=== PATIENT | male | born 1945 | race Caucasian/White ===

== ENCOUNTER 2017-02-05 18:40 | Emergency (ER) | payer MEDICARE ==
[2017-02-05] MEDS ORDERED: NTG IV ONE (18:41)
[2017-02-05] MEDS ORDERED: Sodium Chloride 0.9% 1000 ML 1,000 ML IV ONE (18:41)
[2017-02-05] MEDS ORDERED: [UNRECOGNIZED DRUG - OTHER] IV ONE (18:41)
[2017-02-05] MEDS ORDERED: Effient 10 MG TABLET PO ONE (18:41)
[2017-02-05] MEDS ORDERED: Sodium Chloride 0.9% 1000 ML 1,000 ML ONE (18:45)
[2017-02-05 18:49] VITALS: O2SAT 95
[2017-02-05] MEDS ORDERED: BABY ASPIRIN 81 MG CHEW PO ONE (18:53)
[2017-02-05] MEDS ORDERED: Pepcid 20 MG VIAL IV ONE (18:53)
[2017-02-05] MEDS ORDERED: Sodium Chloride 0.9% 1000 ML 1,000 ML IV SCH (19:00)
[2017-02-05 19:01] LABS: BASOPHIL % 0.2 % (0.0-0.4); Eosinophil % 4.2 % (0.00-5.0); Granulocytes % 60.2 % (36.0-66.0); Lymphocytes % 25.6 % (24.0-44.0); Mean Cell Volume 105.7 fl (78-100); Mean Corpuscular Hemoglobin 34.7 pg (26-32); Monocytes % 9.8 % (0.0-12.0); Platelet Count 251 K/mm3 (150-450); Red Blood Count 3.14 M/mm3 (4.1-5.6); Red Cell Distribution Width 12.4 % (11.5-14.0); White Blood Count 8.8 K/mm3 (4.0-10.5)
--- NOTE | 2017-02-05 19:09 | ERPHSYRPT ---
- History of Present Illness Time Seen by Provider: 02/05/17 18:53 Source: patient Patient Subjective Stated Complaint: pt states that heart is racing at times and is short of breath, states " for some time". no fever, no cough,no pain at present time Triage Nursing Assessment: pt here per wc for increase sob, pt very sob with excertion, chest clear,skin w/d pale. no edema noted Physician History: CC: shortness of breath Hx: 71 y/o patient of [facility]. He has hx of COPD. No hx of heart disease. He reports worsened shortness of breath and WHITMAN for the past week. Chest pain 2 days ago but none today. No recent bleeding or surgeries. WHITMAN is severe and has worsened. Allergies/Adverse Reactions: No Known Drug Allergies Allergy (Unverified 02/05/17 18:53) Hx Tetanus, Diphtheria Vaccination/Date Given: No Hx Influenza Vaccination/Date Given: No Hx Pneumococcal Vaccination/Date Given: No Immunizations Up to Date: No - Review of Systems Constitutional: Fatigue, Weakness, No Fever, No Chills Eyes: No Symptoms Ears, Nose, & Throat: No Symptoms Respiratory: Dyspnea, Dyspnea on Exertion (WHITMAN), No Cough Cardiac: Chest Pain (2 days ago) Abdominal/Gastrointestinal: No Abdominal Pain, No Nausea, No Vomiting, No Diarrhea Musculoskeletal: No Back Pain Neurological: No Focal Weakness, No Parasthesia All Other Systems: Reviewed and Negative - Past Medical History Pertinent Past Medical History: Yes Respiratory History: COPD, Emphysema - Past Surgical History Past Surgical History: Yes Gastrointestinal: Other - Social History Smoking Status: Former smoker Exposure to second hand smoke: No Drug Use: none Patient Lives Alone: No - Nursing Vital Signs Nursing Vital Signs: Initial Vital Signs Temperature 98.9 F 02/05/17 18:41 Pulse Rate 108 H 02/05/17 18:41 Respiratory Rate 24 02/05/17 18:41 Blood Pressure 128/77 02/05/17 18:41 O2 Sat by Pulse Oximetry 95 02/05/17 18:41 Pain Scale Pain Intensity 0 - Physical Exam General Appearance: alert, other (short of breath on arrival) Eye Exam: PERRL/EOMI Ears, Nose, Throat Exam: normal ENT inspection, moist mucous membranes Neck Exam: normal inspection, non-tender, supple Respiratory Exam: diminished breath sounds, crackles/rales (few bases) Cardiovascular Exam: regular rate/rhythm, No murmur Gastrointestinal/Abdomen Exam: soft, No tenderness, No distention Back Exam: normal inspection Extremity Exam: normal inspection, normal range of motion, pedal edema (trace) Neurologic Exam: alert, oriented x 3, cooperative, nurse charge rn II-XII nml as tested, sensation nml, No motor deficits Skin Exam: warm, dry, No rash SpO2 Interpretation: normal SpO2: 95 Oxygen Delivery: Room Air - Course Nursing assessment & vital signs reviewed: Yes EKG Interpreted by Me: RATE (105), Sinus Tach, NORMAL AXIS, NORMAL INTERVALS ( QTc 421), ST Elev (inferior current of injury) - Radiology Exams cxr X-ray Interpretation: Interpreted by me (no failure, mild CM with tortuous aorta ) Ordered Tests: Active Orders 24 hr Category Date Time Status Hotbed Transfer Operator STAT Care 02/05/17 18:54 Active EKG-ER Only STAT Care 02/05/17 18:53 Active IV Insertion STAT Care 02/05/17 18:53 Active Pulse Oximetry (ED) STAT Care 02/05/17 18:53 Active CHEST 1 VIEW (PORTABLE) Stat Exams 02/05/17 18:54 Ordered CBC W DIFF Stat Lab 02/05/17 18:50 Received CMP Stat Lab 02/05/17 18:50 Received NT PRO BNP Stat Lab 02/05/17 18:50 Received PROTIME WITH INR Stat Lab 02/05/17 18:50 Received PTT Stat Lab 02/05/17 18:50 Received TROPONIN Q3H Lab 02/05/17 18:50 Received TROPONIN Q3H Lab 02/05/17 22:00 Ordered TROPONIN Q3H Lab 02/06/17 01:00 Ordered TROPONIN Q3H Lab 02/06/17 04:00 Ordered TROPONIN Q3H Lab 02/06/17 07:00 Ordered Medication Summary Generic Name Dose Route Start Last Admin Trade Name Freq PRN Reason Stop Dose Admin Sodium Chloride 1,000 mls @ 30 mls/hr 02/05/17 19:00 Sodium Chloride 0.9% 1000 Ml IV 03/07/17 18:59 .Q24H WESTLEY Discontinued Medications Generic Name Dose Route Start Last Admin Trade Name Freq PRN Reason Stop Dose Admin Aspirin 324 mg 02/05/17 18:53 Baby Aspirin 81 Mg Chew PO 02/05/17 18:54 STAT ONE Famotidine 20 mg 02/05/17 18:53 Pepcid 20 Mg Vial IV 02/05/17 18:54 STAT ONE Sodium Chloride Confirm 02/05/17 18:45 Sodium Chloride 0.9% 1000 Ml Administered 02/05/17 18:46 Dose 1,000 mls @ ud .ROUTE .STK-MED ONE - Progress Progress Note: 02/05/17 19:10 No hx of injury, TIA, stroke, trauma, or bleeding. EKG shows inferior current of injury. Called Dr Rider at [facility]. ASA, effient, NTG started. He has no current chest pain. Spoke to Dr To and sent EKG to Dr To. Pt symptoms atypical but will transfer for emergent cardiology. Labs pending. Counseled pt/family regarding: diagnosis, need for follow-up - Departure Time of Disposition: 19:12 Departure Disposition: Transfer ([facility]) Clinical Impression: Acute ST elevation myocardial infarction (STEMI) of inferior wall, Dyspnea on exertion Condition: Serious Critical Care Time: Yes Critical Care Time(excluding separately billable procedures): 30-74 minutes Referrals: NERISSA CARLISLE [Primary Care Provider] -
[2017-02-05 19:14] LABS: INR 1.11 (0.8-3.0); PROTIME 12.4 SECONDS (8.83-12.87)
[2017-02-05 19:16] LABS: PTT 28.1 SECONDS (24.1-36.1)
[2017-02-05 19:19] VITALS: BP 152/88; PULSE 110
[2017-02-05 19:19] LABS: ALBUMIN 3.2 g/dL (3.4-5.0); ALKALINE PHOSPHATASE 98 U/L (46-116); ANION GAP 12.6 MEQ/L (5-15); BLOOD UREA NITROGEN 12 mg/dL (9-20); CHLORIDE 105 mEq/L (98-107); Carbon Dioxide 26.3 mEq/L (21-32); Glucose 177 MG/DL (70-110); Potassium 4.5 mEq/L (3.5-5.1); SGOT/AST 35 U/L (15-37); SGPT/ALT 23 U/L (12-78); SODIUM 139 mEq/L (136-145); Total Protein 7.8 gm/dL (6.4-8.2)
--- NOTE | 2017-02-06 08:41 | XRAY ---
Indication: Short of breath. Comparison: None Portable chest demonstrates right mid to upper lung pleural-parenchymal thickening/scarring and right lung calcified pleural plaquing. Left lung clear. Heart is not enlarged. Vascularity normal. Bony thorax intact with mild spinal degenerative changes and multilevel mid thoracic compression deformities of uncertain chronicity. Impression: Nonacute chest with chronic features.
== END 2017-02-05 19:12 | disposition short-term general hospital (02) ==
LOC: ED 18:40
DX: I21.19 ST elevation (STEMI) myocardial infarction involving other coronary artery of inferior wall (principal); R06.00 Dyspnea, unspecified; J44.9 Chronic obstructive pulmonary disease, unspecified
CPT/HCPCS: 36000; 36415; 71010; 80053; 83880; 84484; 85025; 85610; 85730; 93005; 93041; 96360; 96374; 99291; A9270-GY